=== PATIENT | male | born 1980 | race Caucasian/White ===

== ENCOUNTER 2021-05-25 03:26 | Emergency (ER) | payer SELFPAY ==
[~2021-05-25] VITALS: Ht 167.6 cm; Wt 55.0 kg
[2021-05-25] MEDS ORDERED: GABAPENTIN 300MG CAPSULE PO ONE (05:45)
[2021-05-25 06:30] VITALS: BP 125/77
[2021-05-25] MEDS ORDERED: GABA-529 MT (07:04)
== END 2021-05-25 07:16 | disposition home or self-care (01) ==
LOC: EDBD → ER 03:26
DX: G57.93 Unspecified mononeuropathy of bilateral lower limbs (principal)
CPT/HCPCS: 82962; 93970; 99284

== ENCOUNTER 2021-06-07 20:15 | Inpatient (IN) | payer MEDICAID ==
[~2021-06-07] VITALS: Ht 167.6 cm; Wt 59.0 kg
[~2021-06-07 20:15] MED LIST: GABA-529 MT
[2021-06-08] MEDS ORDERED: DEXAMETHASONE 4MG/ML 1ML VIAL IV ONE (01:00)
[2021-06-08] MEDS ORDERED: IBUPROFEN 400MG TABLET PO ONE (01:00)
[2021-06-08] MEDS ORDERED: ALBUTEROL 6.7GM HFA INHALER ORI ONE (01:00)
[2021-06-08] MEDS ORDERED: AZITHROMYCIN 500 MG in DEXT 5% WATER 250 ML IV ONE (01:30)
[2021-06-08] MEDS ORDERED: CEFTRIAXONE 1 G PREMIX 50 ML IV ONE (01:30)
[2021-06-08 01:36] LABS: HEMATOCRIT. 26.6 % (42.0-52.0); HEMOGLOBIN. 8.9 g/dL (14.0-18.0); MEAN CORPUSCULAR HEMOGLOBIN 33.2 pg (28.0-32.0); MEAN CORPUSCULAR VOLUME 99.3 fL (80.0-94.0); MEAN PLATELET VOLUME 8.9 fl (7.4-10.4); PLATELET 400 x1000/uL (130-400); RED BLOOD CELL COUNT 2.68 mill/uL (4.7-6.1); RED CELL DISTRIBUTION WIDTH 14.3 % (11.6-14.6)
[2021-06-08 01:37] LABS: CHLORIDE 106 mEq/L (98-107)
[2021-06-08] MEDS ORDERED: POTASSIUM CHLORIDE 20MEQ TABLET SR PO ONE (02:15)
[2021-06-08 05:43] LABS: PLATELET ESTIMATE NORMAL
[2021-06-08] MEDS ORDERED: CLONIDINE 0.1MG TABLET PO PRN (06:45)
[2021-06-08] MEDS ORDERED: ONDANSETRON HCL 4MG/2ML INJ IV PRN (06:45)
[2021-06-08] MEDS ORDERED: MAGNESIUM/ALUMINUM HYDROXIDE/SIMETHICONE 30ML UDC PO PRN (06:45)
[2021-06-08] MEDS ORDERED: NALOXONE HCL 0.4MG/ML VIAL IV PRN (07:15)
[2021-06-08] MEDS: HYDROCODONE/ACETAMINOPHEN 5/325MG TABLET PO PRN (16:42)
[2021-06-08 21:56] VITALS: BP 119/72
[2021-06-09] VITALS: BP 119/72
[2021-06-09] MEDS: CEFTRIAXONE 1,000 MG in DEXTROSE 5% WATER 50 ML IV SCH ×2 (00:19→22:47)
[2021-06-09] MEDS: AZITHROMYCIN 500 MG in DEXT 5% WATER 250 ML IV SCH ×2 (00:19→20:51)
[2021-06-09] MEDS: HYDROCODONE/ACETAMINOPHEN 5/325MG TABLET PO PRN ×3 (01:08→21:02)
[2021-06-09 04:00] VITALS: BP 97/65
[2021-06-09 06:53] LABS: CHLORIDE 107 mEq/L (98-107)
[2021-06-09 08:00] VITALS: BP 98/59
[2021-06-09 08:57] LABS: BASOPHILS % 1.2 % (0.0-2.0); EOSINOPHILS % 0.1 % (0.0-5.0); HEMATOCRIT. 24.7 % (42.0-52.0); HEMOGLOBIN. 8.1 g/dL (14.0-18.0); LYMPHOCYTES % 11.4 % (20.0-50.0); MEAN CORPUSCULAR HEMOGLOBIN 33.7 pg (28.0-32.0); MEAN CORPUSCULAR VOLUME 102.5 fL (80.0-94.0); MEAN PLATELET VOLUME 7.2 fl (7.4-10.4); MONOCYTES % 10.2 % (2.0-8.0); NEUTROPHILS % 77.1 % (40.0-76.0); PLATELET 462 x1000/uL (130-400); RED BLOOD CELL COUNT 2.41 mill/uL (4.7-6.1); RED CELL DISTRIBUTION WIDTH 14.3 % (11.6-14.6)
[2021-06-09] MEDS: DEXAMETHASONE 10 MG/ML VIAL IV SCH (11:21)
[2021-06-09 12:00] VITALS: BP 100/65
[2021-06-09 16:00] VITALS: BP 113/73
[2021-06-09 20:00] VITALS: BP 113/68
[2021-06-10] VITALS: BP 112/77
[2021-06-10 04:00] VITALS: BP 115/75
[2021-06-10 08:00] VITALS: BP 114/72
[2021-06-10] MEDS: DEXAMETHASONE 10 MG/ML VIAL IV SCH (08:49)
[2021-06-10] MEDS: HYDROCODONE/ACETAMINOPHEN 5/325MG TABLET PO PRN ×2 (08:57→19:54)
[2021-06-10 12:00] VITALS: BP 120/75
[2021-06-10 16:00] VITALS: BP 107/67
[2021-06-10 20:00] VITALS: BP 104/61
[2021-06-10] MEDS: AZITHROMYCIN 500 MG in DEXT 5% WATER 250 ML IV SCH (22:03)
[2021-06-10] MEDS: CEFTRIAXONE 1,000 MG in DEXTROSE 5% WATER 50 ML IV SCH (22:03)
[2021-06-11] VITALS: BP 102/68
[2021-06-11] MEDS: HYDROCODONE/ACETAMINOPHEN 5/325MG TABLET PO PRN ×4 (01:38→21:19)
[2021-06-11 04:00] VITALS: BP 106/64
[2021-06-11 08:00] VITALS: BP 99/55
[2021-06-11] MEDS: DEXAMETHASONE 10 MG/ML VIAL IV SCH (08:30)
[2021-06-11 12:00] VITALS: BP 109/75
[2021-06-11 16:00] VITALS: BP 109/72
[2021-06-11 20:00] VITALS: BP 128/80
[2021-06-11] MEDS: AZITHROMYCIN 500 MG in DEXT 5% WATER 250 ML IV SCH (21:19)
[2021-06-11] MEDS: CEFTRIAXONE 1,000 MG in DEXTROSE 5% WATER 50 ML IV SCH (21:19)
[2021-06-12] VITALS: BP 104/68
[2021-06-12] MEDS: HYDROCODONE/ACETAMINOPHEN 5/325MG TABLET PO PRN ×4 (03:25→23:39)
[2021-06-12 04:00] VITALS: BP 108/66
[2021-06-12] MEDS: GUAIFENESIN 200MG/10ML SUGAR FREE UDC PO PRN (05:31)
[2021-06-12 08:00] VITALS: BP 122/71
[2021-06-12] MEDS: DEXAMETHASONE 10 MG/ML VIAL IV SCH (10:39)
[2021-06-12 12:00] VITALS: BP 112/68
[2021-06-12 16:00] VITALS: BP 114/71
[2021-06-12 20:00] VITALS: BP 107/53
[2021-06-12] MEDS: ALBUTEROL 6.7GM HFA INHALER ORI SCH (20:33)
[2021-06-12] MEDS: CEFTRIAXONE 1,000 MG in DEXTROSE 5% WATER 50 ML IV SCH (22:32)
[2021-06-13] VITALS: BP 94/64
[2021-06-13] MEDS: ALBUTEROL 6.7GM HFA INHALER ORI SCH ×4 (02:09→21:11)
[2021-06-13 04:00] VITALS: BP 110/71
[2021-06-13] MEDS: HYDROCODONE/ACETAMINOPHEN 5/325MG TABLET PO PRN (04:30)
[2021-06-13 06:57] LABS: CHLORIDE 104 mEq/L (98-107)
[2021-06-13 07:23] LABS: HEMATOCRIT. 24.4 % (42.0-52.0); HEMOGLOBIN. 8.2 g/dL (14.0-18.0); MEAN CORPUSCULAR HEMOGLOBIN 34.1 pg (28.0-32.0); MEAN CORPUSCULAR VOLUME 102.1 fL (80.0-94.0); MEAN PLATELET VOLUME 6.9 fl (7.4-10.4); PLATELET 562 x1000/uL (130-400); RED BLOOD CELL COUNT 2.39 mill/uL (4.7-6.1); RED CELL DISTRIBUTION WIDTH 14.7 % (11.6-14.6)
[2021-06-13 08:00] VITALS: BP 107/61
[2021-06-13] MEDS: DEXAMETHASONE 10 MG/ML VIAL IV SCH (09:11)
[2021-06-13] MEDS: TRAMADOL 50MG TABLET PO PRN ×2 (10:53→21:11)
[2021-06-13] MEDS ORDERED: POTASSIUM CHLORIDE 20MEQ TABLET SR PO SCH (11:00)
[2021-06-13 12:00] VITALS: BP 123/75
[2021-06-13 16:00] VITALS: BP 112/64
[2021-06-13 17:29] LABS: PLATELET ESTIMATE INCREASED
[2021-06-13 20:00] VITALS: BP 110/77
[2021-06-14] VITALS: BP 111/70
[2021-06-14] MEDS: ALBUTEROL 6.7GM HFA INHALER ORI SCH ×4 (01:22→21:22)
[2021-06-14 04:00] VITALS: BP 105/71
[2021-06-14] MEDS: GUAIFENESIN 200MG/10ML SUGAR FREE UDC PO PRN ×2 (05:58→13:16)
[2021-06-14] MEDS: TRAMADOL 50MG TABLET PO PRN ×3 (05:58→21:21)
[2021-06-14 08:00] VITALS: BP 109/76
[2021-06-14] MEDS: DEXAMETHASONE 10 MG/ML VIAL IV SCH (08:10)
[2021-06-14 12:00] VITALS: BP 100/62
[2021-06-14 16:00] VITALS: BP 106/68
[2021-06-14] MEDS: ACETAMINOPHEN 325MG TABLET PO PRN (17:02)
[2021-06-14 20:00] VITALS: BP 95/62
[2021-06-15] VITALS: BP 101/61
[2021-06-15] MEDS: ALBUTEROL 6.7GM HFA INHALER ORI SCH ×4 (03:42→21:44)
[2021-06-15] MEDS: TRAMADOL 50MG TABLET PO PRN ×3 (03:44→21:43)
[2021-06-15] MEDS: GUAIFENESIN 200MG/10ML SUGAR FREE UDC PO PRN ×3 (03:44→21:43)
[2021-06-15 04:00] VITALS: BP 115/64
[2021-06-15 07:25] LABS: CHLORIDE 101 mEq/L (98-107)
[2021-06-15 08:00] VITALS: BP 109/59
[2021-06-15] MEDS: DEXAMETHASONE 10 MG/ML VIAL IV SCH (08:08)
[2021-06-15 08:32] LABS: BASOPHILS % 0.3 % (0.0-2.0); EOSINOPHILS % 1.9 % (0.0-5.0); LYMPHOCYTES % 12.3 % (20.0-50.0); MEAN CORPUSCULAR HEMOGLOBIN 34.2 pg (28.0-32.0); MEAN CORPUSCULAR VOLUME 102.7 fL (80.0-94.0); MONOCYTES % 7.9 % (2.0-8.0); NEUTROPHILS % 77.6 % (40.0-76.0); PLATELET 566 x1000/uL (130-400); RED BLOOD CELL COUNT 2.77 mill/uL (4.7-6.1)
[2021-06-15 08:34] LABS: HEMATOCRIT. 28.4 % (42.0-52.0); HEMOGLOBIN. 9.5 g/dL (14.0-18.0)
[2021-06-15 12:00] VITALS: BP 108/70
[2021-06-15 16:00] VITALS: BP 108/70
[2021-06-15 20:00] VITALS: BP 111/70
[2021-06-16] VITALS: BP 98/63
[2021-06-16] MEDS: ALBUTEROL 6.7GM HFA INHALER ORI SCH ×4 (01:01→20:41)
[2021-06-16 04:00] VITALS: BP 108/70
[2021-06-16] MEDS: GUAIFENESIN 200MG/10ML SUGAR FREE UDC PO PRN (04:59)
[2021-06-16] MEDS: TRAMADOL 50MG TABLET PO PRN ×3 (04:59→20:42)
[2021-06-16 08:10] VITALS: BP 107/61
[2021-06-16] MEDS: DEXAMETHASONE 10 MG/ML VIAL IV SCH (09:11)
[2021-06-16 12:00] VITALS: BP 110/67
[2021-06-16 16:00] VITALS: BP 110/65
[2021-06-16 20:00] VITALS: BP 105/70
[2021-06-17] VITALS: BP 109/62
[2021-06-17] MEDS: ALBUTEROL 6.7GM HFA INHALER ORI SCH ×4 (02:00→21:40)
[2021-06-17 04:00] VITALS: BP 96/62
[2021-06-17 08:00] VITALS: BP 96/57
[2021-06-17] MEDS: DEXAMETHASONE 10 MG/ML VIAL IV SCH (08:42)
[2021-06-17] MEDS: TRAMADOL 50MG TABLET PO PRN ×2 (08:48→21:40)
[2021-06-17 12:00] VITALS: BP 105/59
[2021-06-17 16:00] VITALS: BP 99/53
[2021-06-17] MEDS: GUAIFENESIN 200MG/10ML SUGAR FREE UDC PO PRN (17:06)
[2021-06-17 20:00] VITALS: BP 106/58
[2021-06-18] VITALS (7 sets, daily range): BP systolic 90–112; BP diastolic 50–69
[2021-06-18] MEDS: ALBUTEROL 6.7GM HFA INHALER ORI SCH ×3 (02:00→14:53)
[2021-06-18] MEDS: GUAIFENESIN 200MG/10ML SUGAR FREE UDC PO PRN ×3 (08:22→21:47)
[2021-06-18] MEDS: TRAMADOL 50MG TABLET PO PRN ×2 (08:22→17:58)
[2021-06-18] MEDS: DEXAMETHASONE 10 MG/ML VIAL IV SCH (08:22)
[2021-06-18] MEDS: ACETAMINOPHEN 325MG TABLET PO PRN (14:58)
[2021-06-18] MEDS: IPRATROPIUM/ALBUTEROL 0.5-3(2.5)MG/3ML NEB HHN SCH (21:54)
[2021-06-19] VITALS: BP 107/67
[2021-06-19 04:00] VITALS: BP 101/69
[2021-06-19 08:00] VITALS: BP 107/71
[2021-06-19] MEDS: DEXAMETHASONE 10 MG/ML VIAL IV SCH (09:32)
[2021-06-19] MEDS: TRAMADOL 50MG TABLET PO PRN ×2 (09:36→23:10)
[2021-06-19 12:00] VITALS: BP 107/65
[2021-06-19 16:00] VITALS: BP 107/68
[2021-06-19 20:00] VITALS: BP 115/66
[2021-06-19] MEDS: IPRATROPIUM/ALBUTEROL 0.5-3(2.5)MG/3ML NEB HHN SCH (21:20)
[2021-06-20] VITALS: BP 110/71
[2021-06-20] MEDS: IPRATROPIUM/ALBUTEROL 0.5-3(2.5)MG/3ML NEB HHN SCH ×4 (01:06→20:44)
[2021-06-20 04:00] VITALS: BP 104/64
[2021-06-20 08:00] VITALS: BP 106/71
[2021-06-20] MEDS: TRAMADOL 50MG TABLET PO PRN ×2 (09:08→20:59)
[2021-06-20] MEDS: DEXAMETHASONE 10 MG/ML VIAL IV SCH (09:08)
[2021-06-20 12:00] VITALS: BP 103/69
[2021-06-20 16:00] VITALS: BP 113/69
[2021-06-20] MEDS: ALBUTEROL 6.7GM HFA INHALER ORI PRN (16:27)
[2021-06-20 20:00] VITALS: BP 107/67
[2021-06-21] VITALS: BP 103/65
[2021-06-21] MEDS: IPRATROPIUM/ALBUTEROL 0.5-3(2.5)MG/3ML NEB HHN SCH ×4 (02:36→20:54)
[2021-06-21 04:00] VITALS: BP 101/60
[2021-06-21 08:00] VITALS: BP 106/72
[2021-06-21] MEDS: DEXAMETHASONE 10 MG/ML VIAL IV SCH (09:00)
[2021-06-21] MEDS: TRAMADOL 50MG TABLET PO PRN ×2 (11:30→22:06)
[2021-06-21 16:00] VITALS: BP 117/71
[2021-06-21 20:00] VITALS: BP 110/72
[2021-06-21] MEDS ORDERED: NALOXONE HCL 0.4MG/ML VIAL IV PRN (20:30)
[2021-06-21] MEDS: ZOLPIDEM TARTRATE 5MG TABLET PO PRN (22:06)
[2021-06-22] MEDS: IPRATROPIUM/ALBUTEROL 0.5-3(2.5)MG/3ML NEB HHN SCH ×4 (01:22→18:00)
[2021-06-22 04:00] VITALS: BP 117/71
[2021-06-22 08:00] VITALS: BP 111/67
[2021-06-22] MEDS: DEXAMETHASONE 10 MG/ML VIAL IV SCH (09:28)
[2021-06-22] MEDS: TRAMADOL 50MG TABLET PO PRN ×2 (09:28→22:03)
[2021-06-22 12:00] VITALS: BP 101/59
[2021-06-22 16:00] VITALS: BP 110/73
[2021-06-22 20:00] VITALS: BP 122/73
[2021-06-22] MEDS: ZOLPIDEM TARTRATE 5MG TABLET PO PRN (22:03)
[2021-06-22] MEDS: ALBUTEROL 6.7GM HFA INHALER ORI PRN (22:08)
[2021-06-23] VITALS: BP 119/76
[2021-06-23] MEDS: IPRATROPIUM/ALBUTEROL 0.5-3(2.5)MG/3ML NEB HHN SCH ×4 (02:24→21:25)
[2021-06-23 04:00] VITALS: BP 102/57
[2021-06-23 08:00] VITALS: BP 101/68
[2021-06-23] MEDS: DEXAMETHASONE 10 MG/ML VIAL IV SCH (10:30)
[2021-06-23] MEDS: TRAMADOL 50MG TABLET PO PRN (10:31)
[2021-06-23 12:00] VITALS: BP 113/64
[2021-06-23 16:00] VITALS: BP 106/60
[2021-06-23] MEDS: ACETAMINOPHEN 325MG TABLET PO PRN (18:49)
[2021-06-23 20:00] VITALS: BP 103/53
[2021-06-23] MEDS: ZOLPIDEM TARTRATE 5MG TABLET PO PRN (21:35)
[2021-06-24 00:44] VITALS: BP 102/62
[2021-06-24] MEDS: IPRATROPIUM/ALBUTEROL 0.5-3(2.5)MG/3ML NEB HHN SCH ×4 (02:35→21:54)
[2021-06-24 08:00] VITALS: BP 104/61
[2021-06-24] MEDS: TRAMADOL 50MG TABLET PO PRN ×2 (09:19→21:56)
[2021-06-24] MEDS: DEXAMETHASONE 10 MG/ML VIAL IV SCH (09:19)
[2021-06-24 12:00] VITALS: BP 100/54
[2021-06-24 20:00] VITALS: BP 108/61
[2021-06-25] VITALS: BP 110/67
[2021-06-25] MEDS: ZOLPIDEM TARTRATE 5MG TABLET PO PRN (00:36)
[2021-06-25] MEDS: IPRATROPIUM/ALBUTEROL 0.5-3(2.5)MG/3ML NEB HHN SCH ×4 (02:02→22:09)
[2021-06-25 04:00] VITALS: BP 103/64
[2021-06-25 08:00] VITALS: BP 96/53
[2021-06-25] MEDS: DEXAMETHASONE 10 MG/ML VIAL IV SCH (09:57)
[2021-06-25 12:00] VITALS: BP 117/51
[2021-06-25] MEDS: TRAMADOL 50MG TABLET PO PRN ×2 (12:24→21:33)
[2021-06-25 16:00] VITALS: BP 112/67
[2021-06-25 20:00] VITALS: BP 115/64
[2021-06-26] VITALS: BP 111/66
[2021-06-26] MEDS: ZOLPIDEM TARTRATE 5MG TABLET PO PRN (00:29)
[2021-06-26] MEDS: IPRATROPIUM/ALBUTEROL 0.5-3(2.5)MG/3ML NEB HHN SCH ×4 (01:53→21:29)
[2021-06-26 04:00] VITALS: BP 104/63
[2021-06-26 08:00] VITALS: BP 118/74
[2021-06-26] MEDS: DEXAMETHASONE 10 MG/ML VIAL IV SCH (09:54)
[2021-06-26] MEDS: TRAMADOL 50MG TABLET PO PRN ×2 (10:07→20:34)
[2021-06-26 16:00] VITALS: BP 121/66
[2021-06-26 20:00] VITALS: BP 122/88
[2021-06-26] MEDS: ACETAMINOPHEN 325MG TABLET PO PRN (22:14)
[2021-06-26] MEDS: GUAIFENESIN 200MG/10ML SUGAR FREE UDC PO PRN (22:14)
[2021-06-27] VITALS: BP 123/67
[2021-06-27] MEDS: IPRATROPIUM/ALBUTEROL 0.5-3(2.5)MG/3ML NEB HHN SCH ×4 (02:50→21:49)
[2021-06-27 04:00] VITALS: BP 113/69
[2021-06-27 08:00] VITALS: BP 111/65
[2021-06-27] MEDS: DEXAMETHASONE 10 MG/ML VIAL IV SCH (09:42)
[2021-06-27 12:00] VITALS: BP 115/63
[2021-06-27 16:00] VITALS: BP 111/61
[2021-06-27] MEDS ORDERED: ALBU6.7H9 INH (18:58)
[2021-06-27] MEDS: TRAMADOL 50MG TABLET PO PRN (19:09)
[2021-06-27 20:00] VITALS: BP 110/67
[2021-06-27] MEDS ORDERED: ZOLPIDEM TARTRATE 5MG TABLET PO PRN (21:00)
[2021-06-28] MEDS: IPRATROPIUM/ALBUTEROL 0.5-3(2.5)MG/3ML NEB HHN SCH ×2 (01:49→08:48)
[2021-06-28] MEDS: DEXAMETHASONE 10 MG/ML VIAL IV SCH (09:44)
[2021-06-28 10:31] VITALS: BP 115/60
== END 2021-06-28 15:11 | disposition home or self-care (01) | DRG 720 ==
LOC: ER 21:06 → MICUSO 06-08 02:14 → EDBD 06-08 02:14 → EDBEDREQTM 06-08 02:16 → EDBEDREQ 06-08 02:16 → 7WST 06-08 21:28 → 6EST 06-18 09:56
PROVIDERS: ADMIT Hospitalist; ATTEND Hospitalist
DX: A41.89 Other specified sepsis (principal); J96.01 Acute respiratory failure with hypoxia; J12.82 Pneumonia due to coronavirus disease 2019; U07.1 COVID-19; E44.0 Moderate protein-calorie malnutrition; E87.6 Hypokalemia; R65.20 Severe sepsis without septic shock; R04.0 Epistaxis; R74.01 Elevation of levels of liver transaminase levels; D64.9 Anemia, unspecified; Z68.21 Body mass index [BMI] 21.0-21.9, adult
CPT/HCPCS: 36415; 71045; 73560; 80048; 80053; 82728; 83605; 83615; 84145; 85025; 85384; 86140; 87426; 93005; 93970; 94640; 99291; C1893; J0456; J0696; J1100; J7040; J7060; U0003; U0005